=== PATIENT | female | born 1985 | race Caucasian/White ===

== ENCOUNTER 2019-05-31 09:11 | Emergency (ER) | payer OTHER ==
[~2019-05-31] VITALS: Ht 152.4 cm; Wt 49.9 kg
[2019-05-31] MEDS ORDERED: Prozac40 MG PO ×2 (10:14→10:54)
[2019-05-31] MEDS ORDERED: Seroquel Xr50 MG PO ×2 (10:15→10:54)
[2019-05-31] MEDS ORDERED: ALPR1 PO (10:15)
[2019-05-31] MEDS ORDERED: PRAZ5 PO (10:54)
[2019-05-31] MEDS ORDERED: Xanax1 MG PO (10:54)
== END 2019-05-31 11:12 | disposition home or self-care (01) ==
LOC: ER 09:11
DX: F32.9 Major depressive disorder, single episode, unspecified (principal); F41.9 Anxiety disorder, unspecified; Z76.0 Encounter for issue of repeat prescription; F43.10 Post-traumatic stress disorder, unspecified; Z79.899 Other long term (current) drug therapy
CPT/HCPCS: 99281

== ENCOUNTER 2019-06-08 13:11 | Emergency (ER) | payer OTHER ==
[~2019-06-08] VITALS: Ht 152.4 cm; Wt 49.9 kg
[~2019-06-08 13:11] MED LIST: ALPR1 PO; PRAZ5 PO; Prozac40 MG PO; Seroquel Xr50 MG PO; Xanax1 MG PO
[2019-06-08] MEDS ORDERED: ALPR1 PO (13:27)
[2019-06-08] MEDS ORDERED: Seroquel Xr50 MG PO (13:27)
[2019-06-08] MEDS ORDERED: Prazosin HCl5 MG PO (13:27)
[2019-06-08] MEDS ORDERED: Prozac40 MG PO (13:27)
== END 2019-06-08 13:35 | disposition home or self-care (01) ==
LOC: ER 13:11
DX: Z76.0 Encounter for issue of repeat prescription (principal); F32.9 Major depressive disorder, single episode, unspecified; F41.9 Anxiety disorder, unspecified; Z79.899 Other long term (current) drug therapy
CPT/HCPCS: 99281